=== PATIENT | female | born 1950 | race Hispanic/Latino ===

== ENCOUNTER 2022-07-04 07:51 | Emergency (ER) | payer MEDICARE ==
[~2022-07-04] VITALS: Ht 167.6 cm; Wt 74.8 kg
[~2022-07-04 07:51] MED LIST: ALEN70TA80 PO; CALC1TAB2 PO; LETR2.5T7 PO; LISI1TAB51 PO; MULTIVITAMIN PO; SIMV-43 PO; VITA-348 PO; VITAMIN B 12 PO
[2022-07-04] MEDS ORDERED: SOLU-MEDROL 125MG VIAL IVP ONE (09:00)
[2022-07-04] MEDS ORDERED: METH4TAB3 PO (09:42)
[2022-07-04 09:50] VITALS: BP 124/78
== END 2022-07-04 10:02 | disposition home or self-care (01) ==
LOC: EDH 07:51
DX: T78.40XA Allergy, unspecified, initial encounter (principal); T49.0X5A Adverse effect of local antifungal, anti-infective and anti-inflammatory drugs, initial encounter; I10 Essential (primary) hypertension; E78.5 Hyperlipidemia, unspecified; Z88.0 Allergy status to penicillin; Z88.8 Allergy status to other drugs, medicaments and biological substances; Z79.899 Other long term (current) drug therapy; Z85.3 Personal history of malignant neoplasm of breast; Z90.89 Acquired absence of other organs; Y92.89 Other specified places as the place of occurrence of the external cause
CPT/HCPCS: 99283; 96374; J2930

== ENCOUNTER 2022-07-11 23:07 | Emergency (ER) | payer MEDICARE ==
[~2022-07-11] VITALS: Ht 165.1 cm; Wt 75.3 kg
[~2022-07-11 23:07] MED LIST changes: +METH4TAB3 PO
[2022-07-12] MEDS: EPINEPHRINE PF 1MG (1:1,000) 1 MG/ML AMP IM ONE ×3 (00:15→01:11)
[2022-07-12] MEDS: DiphenhydrAMINE HCL 50 MG/ML VIAL IV ONE ×2 (00:16→00:53)
[2022-07-12] MEDS: SOLU-MEDROL 125MG VIAL IVP ONE ×2 (00:16→00:53)
[2022-07-12] MEDS ORDERED: PRED20TA3 PO (01:56)
[2022-07-12] MEDS ORDERED: DIPH50 PO (01:56)
[2022-07-12] MEDS ORDERED: FAMO-136 PO (01:57)
[2022-07-12 02:01] VITALS: BP 132/74
== END 2022-07-12 02:02 | disposition home or self-care (01) ==
LOC: EDH 23:07
DX: T78.3XXA Angioneurotic edema, initial encounter (principal); I10 Essential (primary) hypertension; E78.00 Pure hypercholesterolemia, unspecified; Z79.52 Long term (current) use of systemic steroids; Z98.890 Other specified postprocedural states; Z79.899 Other long term (current) drug therapy; Z85.3 Personal history of malignant neoplasm of breast; Z88.0 Allergy status to penicillin; Z88.5 Allergy status to narcotic agent; Z88.6 Allergy status to analgesic agent
CPT/HCPCS: 99291; 96374; 96375; J1200; J2930; J0171

== ENCOUNTER → 2023-07-31 | Outpatient (CLI) | payer MEDICARE ==
[~2023-07-31] MED LIST changes: +DIPH50 PO; +FAMO-136 PO; +PRED20TA3 PO
[2023-07-31 12:19] LABS: CHOLESTEROL 152 mg/dL (<200); HDL CHOLESTEROL 69 mg/dL (35-85); LDL DIRECT 72 mg/dL (0-99); TRIGLYCERIDES 71 mg/dL (30-200)
== END | disposition home or self-care (01) ==
LOC: LAB 09:18
PROVIDERS: ATTEND Internal Medicine Cardiovascular Disease
DX: E78.5 Hyperlipidemia, unspecified (principal)
CPT/HCPCS: 36415; 80061